=== PATIENT | male | born 1960 | race Caucasian/White ===

== ENCOUNTER 2017-01-21 10:25 | Emergency (ER) | payer OTHER ==
[~2017-01-21] VITALS: Ht 185.4 cm; Wt 72.7 kg
[2017-01-21 10:29] VITALS: Ht 185.4 cm; Wt 72.7 kg
[2017-01-21 11:03] LABS: ADD SCAN DIFF NO
[2017-01-21 11:07] LABS: BASOPHILS % 0.5 % (0.0-2.0); EOSINOPHILS # 0.1 10^3/ul (0.0-0.5); EOSINOPHILS % 0.9 % (0.0-7.0); HEMATOCRIT 45.4 % (42.0-52.0); HEMOGLOBIN 15.6 g/dl (14.0-18.0); LYMPHOCYTES # 1.6 10^3/ul (0.8-2.9); LYMPHOCYTES % 20.5 % (15.0-51.0); MEAN CORPUSCULAR HGB CONC 34.4 g/dl (32.0-37.0); MEAN CORPUSCULAR VOLUME 90.3 fl (82.0-101.0); MEAN PLATELET VOLUME 10.1 fl (7.4-10.4); MONOCYTE # 0.5 10^3/ul (0.3-0.9); MONOCYTES % 7.1 % (0.0-11.0); NEUTROPHIL # 5.4 10^3/ul (1.6-7.5); NEUTROPHILS % 70.6 % (39.0-77.0); PLATELET COUNT 234 10^3/UL (140-415); RED BLOOD COUNT 5.03 10^6/ul (4.70-6.10); RED CELL DISTRIBUTION WIDTH 13.3 % (11.5-14.5); WHITE BLOOD COUNT 7.7 10^3/ul (4.8-10.8)
[2017-01-21 11:23] LABS: INR 0.98
[2017-01-21 11:24] LABS: PARTIAL THROMBOPLASTIN TIME 26.9 Sec (25.0-35.0)
[2017-01-21 11:25] LABS: ANION GAP 11 (8-16); BLOOD UREA NITROGEN 11 mg/dl (7-20); CALCIUM 9.1 mg/dl (8.4-10.2); CARBON DIOXIDE 22 mmol/L (21-31); CHLORIDE 104 mmol/L (97-110); CREATININE 0.96 mg/dl (0.61-1.24); GLUCOSE 91 mg/dl (70-220); POTASSIUM 3.9 mmol/L (3.5-5.1); SODIUM 133 mmol/L (135-144)
--- NOTE | 2017-01-21 11:33 | RADRPT ---
PROCEDURE: Chest Radiograph. CLINICAL INDICATION: Chest pain TECHNIQUE: Single frontal chest radiograph. COMPARISON: None available FINDINGS: The cardiomediastinal silhouette is within normal limits. No infiltrate or effusion is seen. Th e bones are intact. IMPRESSION: 1. Unremarkable chest radiograph. RPTAT: KK .Jesus Barrett MD, MD Date Time Electronically viewed and signed by .Jesus Barrett MD, on 01/21/2017 11:33 .B/
[2017-01-21 11:43] LABS: TROPONIN-I < 0.012 ng/ml (0.00-0.12)
--- NOTE | 2017-01-21 12:22 | ERA ---
ER Documentation Chief Complaint Date/Time DATE: 01/21/17 TIME: 12:20 Chief Complaint CP X 3 WEEKS HPI 57-year-old male with history of hypertension and chronic nicotine abuse presents to the ED complaining of a 3 week history of atypical chest pain. 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 No accompanying shortness of breath, nausea, vomiting or diaphoresis. No other relieving or exacerbating factors. Denies abdominal pain or back pain. No leg pain or swelling. No PND, orthopnea or exertional dyspnea. No URI symptoms or cough. No leg pain or swelling. No fevers or chills. No pain while working. [facility] and was sent to the ED with paramedics for further evaluation. He received aspirin and sublingual nitroglycerin that seemed to improve his symptoms. ROS All systems reviewed and are negative except as per history of present illness. Medications Home Meds Active Scripts Aspirin* (Ecotrin*) 81 Mg Tablet.dr, 81 MG PO DAILY, #30 TAB Prov:MAURI TALAMANTES MD 01/21/17 Famotidine* (Pepcid*) 20 Mg Tablet, 20 MG PO BID for 7 Days, TAB Prov:MAURI TALAMANTES MD 01/21/17 Allergies Allergies: Coded Allergies: No Known Allergy (Unverified , 01/21/17) PMhx/Soc Reviewed in chart. As per HPI. History of Surgery: No Hx Neurological Disorder: No Hx Respiratory Disorders: No Hx Cardiac Disorders: Yes (Hypertension) Hx Psychiatric Problems: No Hx Miscellaneous Medical Probl: No (Mandatory, urgent outpatient follow-up within 24 hours as counseled.) Hx Alcohol Use: Yes Hx Substance Use: No Hx Tobacco Use: Yes Smoking Status: Current every day smoker FmHx No stroke, [place] or cancer Physical Exam Vitals Vital Signs Date Time Temp Pulse Resp B/P Pulse Ox O2 Delivery O2 Flow Rate FiO2 01/21/17 13:15 98.2 73 23 132/93 98 Room Air 01/21/17 11:35 68 16 140/92 99 Room Air 01/21/17 10:29 98.2 67 16 158/134 99 Physical Exam Const: Alert, no acute distress. Head: Atraumatic Eyes: Normal Conjunctiva ENT: Normal External Ears, Nose and Mouth. Neck: Full range of motion. No JVD. Nontender. Resp: Breath sounds are equal and clear to auscultation bilaterally Cardio: Regular rate and rhythm, no murmurs. No chest wall tenderness. Abd: Soft, non tender, non distended. Normal bowel sounds. No masses or abnormal pulsations. Skin: No petechiae or rashes Back: No midline or flank tenderness Ext: No cyanosis, or edema. Pulses 4+ in all extremities. Neur: Awake and alert. No focal deficit observed. Psych: Normal Mood and Affect. Patient does not appear anxious or depressed. Result Diagram: 01/21/17 1036 01/21/17 1036 Results 24 hrs Laboratory Tests Test 01/21/17 10:36 White Blood Count 7.710^3/ul Red Blood Count 5.0310^6/ul Hemoglobin 15.6g/dl Hematocrit 45.4% Mean Corpuscular Volume 90.3fl Mean Corpuscular Hemoglobin 31.0pg Mean Corpuscular Hemoglobin Concent 34.4g/dl Red Cell Distribution Width 13.3% Platelet Count 32524^3/UL Mean Platelet Volume 10.1fl Neutrophils % 70.6% Lymphocytes % 20.5% Monocytes % 7.1% Eosinophils % 0.9% Basophils % 0.5% Nucleated Red Blood Cells % 0.0/100WBC Neutrophils # 5.410^3/ul Lymphocytes # 1.610^3/ul Monocytes # 0.510^3/ul Eosinophils # 0.110^3/ul Basophils # 0.010^3/ul Nucleated Red Blood Cells # 0.010^3/ul Prothrombin Time 13.0Sec Prothrombin Time Ratio 1.0 INR International Normalized Ratio 0.98 Activated Partial Thromboplast Time 26.9Sec Sodium Level 133mmol/L Potassium Level 3.9mmol/L Chloride Level 104mmol/L Carbon Dioxide Level 22mmol/L Anion Gap 11 Blood Urea Nitrogen 11mg/dl Creatinine 0.96mg/dl Glucose Level 91mg/dl Calcium Level 9.1mg/dl Troponin I < 0.012ng/ml EKG: TIME: 10:43. Sinus rhythm with sinus arrhythmia. Ventricular rate 72. Normal [place] QRS. Right axis deviation. No acute ST-T wave changes. No ectopy. EP Interpretation: Abnormal EKG. IMAGING: PROCEDURE: Chest Radiograph. CLINICAL INDICATION: Chest pain TECHNIQUE: Single frontal chest radiograph. COMPARISON: None available FINDINGS: The cardiomediastinal silhouette is within normal limits. No infiltrate or effusion is seen. The bones are intact. IMPRESSION: 1. Unremarkable chest radiograph. RPTAT: KK .Jesus Barrett MD, MD Date Time Electronically viewed and signed by .Jesus Barrett MD, MD on 2016 11:33 .B/ [ ] Procedures/MDM DOCUMENTS REVIEWED: ED nurse, no prior records. REEXAMINATION/REEVALUATION: Time: 13:00. Doing well. Asymptomatic. Wants to go home. MEDICAL DECISION MAKIN-year-old male with history of hypertension and chronic nicotine abuse presents to the ED complaining of a 3 week history of chest pain. No ischemic EKG changes, elevated troponin or cardiac dysrhythmia. Chest x-ray is unremarkable for pneumonia, pneumothorax or congestive heart failure. Low risk for pulmonary embolism. Doubt aortic dissection. Heart score is 2. Patient presents with atypical chest pain and is low risk for an acute ischemic event. It is concerning that his symptoms were improved with supplement nitroglycerin although this may also be indicative of a GI etiology. History of hypertension but apparently no longer takes medications due to hypotension. The option of admission versus discharge and urgent outpatient follow-up was discussed. Patient is anxious to be discharged and will follow- up at the [facility] with his physician tomorrow. He understands that potential serious etiologies including cardiac disease or possible and outpatient follow- up is mandatory. He further understands return to the ED immediately should symptoms recur, worsen or any other concerns. Smoking Cessation Therapy: Pt. was counseled for greater than 3 minutes on the health risks of continued smoking and the benefits of cessation. Various strategies for smoking cessation were discussed including nicotine replacement, medications and biofeedback. Unfortunately at this time the patient does not seem motivated. Departure Diagnosis: Primary Impression: Chest pain of uncertain etiology Additional Impressions: Nicotine abuse Hypertension Qualified Code: I10 - Essential hypertension Condition: Stable MAURI TALAMANTES MD Jan 21, 2017 12:22
[2017-01-21 13:15] VITALS: BP 132/93; PULSE 73; RESP 23; TEMP 98.2
[2017-01-21] MEDS ORDERED: FAMO-96 PO (13:15)
[2017-01-21] MEDS ORDERED: ASPI-716 PO (13:16)
== END 2017-01-21 13:27 | disposition home or self-care (01) ==
LOC: E/R 10:25
DX: R07.9 Chest pain, unspecified (principal); F17.210 Nicotine dependence, cigarettes, uncomplicated; I10 Essential (primary) hypertension; Z79.82 Long term (current) use of aspirin
CPT/HCPCS: 36415; 71010; 80048; 84484; 85025; 85610; 85730; 93005